=== PATIENT | female | born 1995 | race Caucasian/White ===

== ENCOUNTER → 2016-11-16 | Outpatient (CLI) | payer BC | END | disposition home or self-care (01) | LOC: LABWHC1 16:26 | PROVIDERS: ATTEND Obstetrics & Gynecology | DX: Z34.00 Encounter for supervision of normal first pregnancy, unspecified trimester (principal); Z3A.00 Weeks of gestation of pregnancy not specified | CPT/HCPCS: 36415; 84702; 86850; 86900; 86901 ==

== ENCOUNTER → 2016-11-30 | Outpatient (CLI) | payer BC ==
--- NOTE | 2016-11-30 15:58 | US ---
EXAMINATION TYPE: US OB <= 14 wk fetus DATE OF EXAM: 11/30/2016 3:42 PM COMPARISON: NONE CLINICAL HISTORY: O46.91 1st trimester spotting. EXAM PERFORMED: OBTA EXAM MEASUREMENTS: GESTATIONAL AGE / DATING Physician Established: not established Dates by LMP: (9 weeks/4 days) EDC: 07/01/2017 Dates by First Scan: HISTORICAL INTERPRETER Dates by Current Scan for: (7 weeks/2 days) EDC: 07/17/2017 MATERNAL ANATOMY Uterus: 10.6 x 6.6 x 5.3cm Right Ovary: not seen Left Ovary: 3.4 x 2.9 x 2.1cm Post CDS / Adnexa: wnl Presence of free fluid: no Presence of corpus luteal cyst: yes = left 1.4cm Presence of subchorionic bleed: no GESTATION / SURVEY CRL: not seen MSD: 2.6cm (7 weeks/2 days) Yolk Sac (normal less than 6mm): 0.3cm IUP: Viable IUP Date of LMP: 09/24/2016 Beta HcG (if available): not available TECHNOLOGIST IMPRESSION: Gestation sac measuring 7w2d with internal yolk sac seen but no pole seen IMPRESSION: Findings could possibly represent an early gestation, findings described above. Follow-up as indicate d.
== END | disposition home or self-care (01) ==
LOC: RADUSWWP 15:30
PROVIDERS: ATTEND Obstetrics & Gynecology
DX: O46.91 Antepartum hemorrhage, unspecified, first trimester (principal); Z3A.01 Less than 8 weeks gestation of pregnancy
CPT/HCPCS: 76801

== ENCOUNTER → 2016-12-04 | Outpatient (CLI) | payer BC ==
[2016-12-04 14:13] LABS: Basophils % (A) 0 %; CH 32.7; CHCM 35.9; Eosinophils % (A) 0 %; HCT 38.6 % (34.0-46.0); HDW 2.53; HGB 13.3 gm/dL (11.4-16.0); Luc % (Auto) 2; Lymphocytes # (A) 0.9 k/uL (1.0-4.8); Lymphocytes % (A) 13 %; MCH 31.5 pg (25.0-35.0); MCHC 34.4 g/dL (31.0-37.0); MCV 91.5 fL (80.0-100.0); Monocytes # (A) 0.3 k/uL (0-1.0); Monocytes % (A) 5 %; Neutrophils # (A) 5.5 k/uL (1.3-7.7); Neutrophils % (A) 80 %; RBC 4.22 m/uL (3.80-5.40); RDW 12.7 % (11.5-15.5); WBC 6.8 k/uL (3.8-10.6); WBC (Perox) 7.37
== END | disposition home or self-care (01) ==
LOC: LABWHC1 13:52
PROVIDERS: ATTEND Obstetrics & Gynecology
DX: Z01.812 Encounter for preprocedural laboratory examination (principal)
CPT/HCPCS: 85025

== ENCOUNTER → 2016-12-07 | Outpatient (CLI) | payer BC | END | disposition home or self-care (01) | LOC: LABPAT 10:42 | PROVIDERS: ATTEND Obstetrics & Gynecology | DX: Z01.818 Encounter for other preprocedural examination (principal) | CPT/HCPCS: 86850; 86900; 86901 ==

== ENCOUNTER 2016-12-09 11:28 | Day surgery (SDC) | payer BC ==
[2016-12-08 08:55] VITALS: BMI 19.6
--- NOTE | 2016-12-09 09:03 | P.HPOB ---
History of Present Illness H&P Date: 12/09/16 Chief Complaint: Blighted ovum A 1-year-old presents for a suction D&C for a blighted ovum. Ultrasound showed 7-1/2 week gestational sac with no pole. Review of Systems All systems: negative Constitutional: Denies chills, Denies fever Eyes: denies blurred vision, denies pain Ears, nose, mouth and throat: Denies headache, Denies sore throat Cardiovascular: Denies chest pain, Denies shortness of breath Respiratory: Denies cough Gastrointestinal: Denies abdominal pain, Denies diarrhea, Denies nausea, Denies vomiting Genitourinary: Denies dysuria, Denies hematuria Musculoskeletal: Denies myalgias Integumentary: Denies pruritus, Denies rash Neurological: Denies numbness, Denies weakness Psychiatric: Denies anxiety, Denies depression Endocrine: Denies fatigue, Denies weight change Past Medical History Additional Past Medical History / Comment(s): blighted ovum History of Any Multi-Drug Resistant Organisms: None Reported Past Surgical History: No Surgical Hx Reported Additional Past Anesthesia/Blood Transfusion Reaction / Comment(s): never has had anesthesia,unknown family hx. no hx blood transfusion Past Psychological History: No Psychological Hx Reported Smoking Status: Never smoker Past Alcohol Use History: Occasional Past Drug Use History: None Reported - Past Family History Mother History Unknown: Yes Additional Family Medical History / Comment(s): pt adopted Medications and Allergies Home Medications Medication Instructions Recorded Confirmed Type Wbu-Qjpf-Cpyte Acid 1 cap PO DAILY 12/08/16 12/08/16 History [-U Capsule (formulary)] Pyridoxine [Vitamin B-6] 50 mg PO DAILY 12/08/16 12/08/16 History Allergies Allergy/AdvReac Type Severity Reaction Status Date / Time No Known Allergies Allergy Verified 12/08/16 08:47 Exam Osteopathic Statement: *. No significant issues noted on an osteopathic structural exam other than those noted in the History and Physical/Consult. Heart: Regular rate and rhythm Lungs: Clear to auscultation bilaterally Abdomen: Soft, nontender Extremities: Negative Homans sign Assessment and Plan (1) Blighted ovum Status: Acute Plan: 1. suction D&C
[~2016-12-09 11:28] MED LIST: DEXAMETHASONE SOD PHOSPHATE 10 MG/ML 1 ML VIAL IV ONE; LACTATED RINGERS 1,000 ML IV SCH; ONDANSETRON 4 MG/2 ML VIAL IVP ONE; Pre Op ABX Message 1 EACH MISC MISCELLANE ONE; SCOPOLAMINE 1.5MG/72HR PATCH TRANSDERM ONE
[2016-12-09 11:48] VITALS: RESP 16
[2016-12-09] MEDS ORDERED: LIDOCAINE 1% 20 ML VIAL (10MG/ML) FOR IV START INTRADERMA ONE (11:57)
[2016-12-09] MEDS: MIDAZOLAM 2 MG/2 ML VIAL IV PRN ×2 (12:07→12:16)
[2016-12-09] MEDS ORDERED: DEXAMETHASONE SOD PHOS (MDV) 100 MG/10 ML VIAL ONE (12:22)
[2016-12-09] MEDS ORDERED: KETOROLAC 30 MG/ML 1 ML VIAL ONE (12:22)
[2016-12-09] MEDS ORDERED: fentaNYL (PF) 50 MCG/ML 2 ML AMP ONE (12:22)
[2016-12-09] MEDS ORDERED: PROPOFOL 10 MG/ML 20 ML VIAL IV ONE (12:22)
[2016-12-09] MEDS ORDERED: ONDANSETRON 4 MG/2 ML VIAL ONE (12:22)
[2016-12-09] MEDS ORDERED: MIDAZOLAM 2 MG/2 ML VIAL ONE (12:22)
--- NOTE | 2016-12-09 12:43 | P.OP ---
Date of Procedure: 12/09/16 Preoperative Diagnosis: . Blighted ovum Postoperative Diagnosis: 1. Blighted ovum Procedure(s) Performed: Suction D&C Anesthesia: GETA (with LMA) Surgeon: Bethany Chen Estimated Blood Loss (ml): 250 IV fluids (ml): 500 Urine output (ml): 10 Pathology: other (Products of conception) Condition: stable Disposition: PACU Operative Findings: Moderate amount of products of conception Description of Procedure: Patient is taken the operating room and general anesthesia was obtained without difficulty. She is prepped draped in normal sterile fashion in dorsal lithotomy position, legs placed in candycane stirrups. Bladder was drained of all urine. Weighted speculum place in vagina and the anterior lip the cervix was grasped with single-tooth tenaculum. The cervix was dilated to allow a #8 suction curet to be introduced into the uterus. The septum suctioned and passed several times. Tissue and blood were removed. Sharp curet was gently used to ensure all tissue had been removed. The suction curet was passed a few more times. Hemostasis was assured. All instruments were removed from the vagina. Patient tolerated procedure well, sponge and instrument counts are correct 2 and she was taken to recovery room in stable condition.
[2016-12-09 13:07] VITALS: TEMP 97.4
[2016-12-09] MEDS: HYDROmorphone 1 MG/ML 1 ML SYRINGE IVP PRN ×2 (13:25→13:37)
[2016-12-09] MEDS ORDERED: LACTATED RINGERS 1,000 ML IV ONE (13:38)
[2016-12-09 14:29] VITALS: BP 102/59; PULSE 81
== END 2016-12-09 15:14 | disposition home or self-care (01) ==
LOC: OR 11:28
PROVIDERS: ATTEND Obstetrics & Gynecology
DX: O02.0 Blighted ovum and nonhydatidiform mole (principal)
CPT/HCPCS: 88305; 59812; J2250; J1100 ×2; J2405; J3010; J1885; J1170; J2704; 86850; 86900; 86901; 88182

== ENCOUNTER → 2018-11-11 | Outpatient (CLI) | payer BC ==
--- NOTE | 2018-11-11 15:03 | MM ---
Reason for exam: clinical finding. Baseline mammogram. History: Patient is nulliparous. Physical Findings: Nurse Summary: 0.5cm nodule in the right breast at 9 o'clock (nurse jessa). MG 3D Diag Mammo W/Cad KELVIN Bilateral CC and MLO view(s) were taken. The breast tissue is extremely dense which could obscure a lesion on mammography. There is no discrete abnormality including palpable region in right breast. These results were verbally communicated with the patient and result sheet given to the patient on 11/11/18. ASSESSMENT: Benign, BI-RAD 2 RECOMMENDATION: Routine screening mammogram of both breasts at age 33.
--- NOTE | 2018-11-11 15:05 | USB ---
Reason for exam: clinical finding. History: Patient is nulliparous. US Breast RT Right complete breast ultrasound includes all four quadrants, the retroareolar region and axilla. Finding demonstrates a 0.5 x 0.7 x 0.4cm oval, irregular, complex, cystic, vascular lesion at 8 o'clock, a 0.3 x 0.3 x 0.2cm oval, cystic lesion at 10 o'clock and a 1.0 x 0.9 x 0.5cm oval, cystic lesion at 11 o'clock. These results were verbally communicated with the patient and result sheet given to the patient on 11/11/18. ASSESSMENT: Benign, BI-RAD 2 RECOMMENDATION: Routine screening mammogram of both breasts at age 33. Manage patient on a clinical basis.
== END | disposition home or self-care (01) ==
LOC: RADMAMWWP 13:27
PROVIDERS: ATTEND Family Medicine
DX: N63.10 Unspecified lump in the right breast, unspecified quadrant (principal)
CPT/HCPCS: 77062; 77066